=== PATIENT | male | born 1960 | race American Indian/Alaskan Native ===

== ENCOUNTER 2023-07-11 16:17 | Emergency (ER) | payer BC, OTHER ==
[~2023-07-11] VITALS: Ht 182.9 cm; Wt 71.6 kg
[~2023-07-11 16:17] MED LIST: LEVA15HF4 IH; PRED20TA PO
[2023-07-11 16:25] VITALS: BP 121/71; PULSE 86; RESP 16; TEMP 97.9; O2SAT 99
--- NOTE | 2023-07-11 20:03 | NUR ---
PATIENT ASLEEP IN FTL.
== END 2023-07-11 20:43 | disposition home or self-care (01) ==
LOC: ER 16:17
DX: F15.10 Other stimulant abuse, uncomplicated (principal); E11.9 Type 2 diabetes mellitus without complications; F31.9 Bipolar disorder, unspecified; Z79.899 Other long term (current) drug therapy
CPT/HCPCS: 99281

== ENCOUNTER 2023-10-09 16:00 | Inpatient (IN) | payer BC, MEDICAID ==
[~2023-10-09] VITALS: Ht 182.9 cm; Wt 64.5 kg
[2023-10-10 11:08] VITALS: BP 123/67; PULSE 56; RESP 17; TEMP 98.5; O2SAT 95
[2023-10-10] MEDS ORDERED: acetaminophen 325mg tablet PO PRN ×2 (11:35)
[2023-10-10] MEDS ORDERED: mag hydrox/Alum hydrox/simeth 30ml oral suspension PO PRN (11:35)
[2023-10-10] MEDS ORDERED: loperamide 2mg capsule PO PRN (11:35)
[2023-10-10] MEDS ORDERED: NICOTINE POLACRILEX 2 MG LOZENGE BC PRN (11:35)
[2023-10-10] MEDS ORDERED: magnesium hydroxide 30ml (MOM) UD suspension PO PRN (11:35)
--- NOTE | 2023-10-10 11:43 | NUR ---
Admit note: [facility] a 5150 at 1108 for DTS from [facility]. Pt reports plan to kill himself via overdose of fentanyl. He reports no desire to live. No safety plan in place. Pt has history of Bipolar.
[2023-10-10 11:52] VITALS: RESP 17; O2SAT 95
[2023-10-10] MEDS ORDERED: NO HOME MEDS (12:01)
[2023-10-10 19:00] VITALS: RESP 16; O2SAT 95
[2023-10-10 20:00] VITALS: BP 103/76; PULSE 94; RESP 16; TEMP 98.6; O2SAT 95
--- NOTE | 2023-10-10 22:57 | NUR ---
Nursing Progress Note: Du Problem: Pt. admitted to [facility] on a 5150 for DTS from [facility].Pt reports plan to kill himself via overdose of fentanyl. He reports no desire to live. No safety plan in place.Pt has history of Bipolar. Interventions : Introduced self and attempted to established rapport, maintained a safe and supportive environment, provided clear and simple instructions, maintained orientation to reality, monitored behavior and provided redirection as needed, maintained Q 15min safety checks. Response: Pt. received awake and lying in bed. He endorses SI stating the same damn plan Iv had he denies HI, AH, VH and has no DC plan at this time. Pt. presents with poor eye contact, downcasted and withdrawn. Pt. states no one cares about me here Pt. reported bilateral foot pain 07/31; offered PRN Tylenol, but her refused. He was encourage to participate in evening activities and snacks, but he refused and stayed in his room all evening. Plan: Pt. requires interruption of current crisis, medication adjustments, and a safe and supportive environment. Addendum: 10/10/23 at 2301 by Lilliam Barragan LVN Nursing Progress Note: Angus Sandy
[2023-10-11 07:00] VITALS: RESP 16; O2SAT 100
[2023-10-11] MEDS ORDERED: traMADol 50MG tablet PO PRN ×2 (07:40→08:29)
[2023-10-11 08:00] VITALS: BP 104/70; PULSE 68; RESP 16; TEMP 98.3; O2SAT 100
[2023-10-11 09:40] LABS: CHOL/HDL RATIO 2.3 (0.00-4.99); CHOLESTEROL 190 MG/DL (0-200); HDL CHOLESTEROL 84 MG/DL (35-60); LDL CHOLESTEROL 89 MG/DL (50-100); TRIGLYCERIDES 51 MG/DL (20-135)
[2023-10-11 10:11] LABS: HEMOGLOBIN A1C 6.2 % (4.5-6.2)
[2023-10-11] MEDS: buPROPion 75mg tablet PO SCH (12:00)
--- NOTE | 2023-10-11 16:47 | NUR ---
Nursing Progress Note: Problem: Pt. admitted to [facility] on a 5150 for DTS from [facility]. Pt reports plan to kill himself via overdose of fentanyl. He reports no desire to live. No safety plan in place. Pt has history of Bipolar. Interventions: Introduced self and attempted to established rapport, maintained a safe and supportive environment, provided clear and simple instructions, maintained orientation to reality, monitored behavior and provided redirection as needed, maintained Q 15min safety checks. Response: Received pt asleep in bed. Pt woke for breakfast and ate in the community room then returned to sleep. While assessing pt he responded just chart that I have a bowel movement every day and stop asking me! Pt irritated at being interrupted from sleeping all day. When pt woke for lunch this RN attempted to assess pt asking if he was having any suicidal thoughts today, pt scoffed, said no then stated I feel like Im wasting my time here, nobody has even looked at my sores yet. Ordered a wound care consult. Was unable to complete a full physical assessment today due to pt agitation. Will continue to monitor. Plan: Pt. requires interruption of current crisis, medication adjustments, and a safe and supportive environment.
[2023-10-11 19:56] VITALS: RESP 20; O2SAT 99
[2023-10-11 19:57] VITALS: BP 95/66; PULSE 114; RESP 20; TEMP 97.9; O2SAT 99
--- NOTE | 2023-10-12 03:38 | NUR ---
Nursing Progress Note: Du Problem: Pt. admitted to [facility] on a 5150 for DTS from [facility]. Pt reports plan to kill himself via overdose of fentanyl. He reports no desire to live. No safety plan in place. Pt has history of Bipolar. Interventions: Introduced self and attempted to established rapport, maintained a safe and supportive environment, provided clear and simple instructions, maintained orientation to reality, monitored behavior and provided redirection as needed, maintained Q 15min safety checks. Response: This nurse resumed care for patient at 1830. This nurse approached patient while he was in bed. Patient not very friendly. Patient denied all symptoms but still has thoughts of suicide. Patient remained in bed all shift. Patient does c/o pain to ankle. Patient currently in bed with eyes closed. No distress to note. Plan: Pt. requires interruption of current crisis, medication adjustments, and a safe and supportive environment.
[2023-10-12 07:00] VITALS: RESP 12; O2SAT 97
[2023-10-12] MEDS: lamoTRIgine 25mg tablet PO SCH (07:40)
[2023-10-12] MEDS: buPROPion 75mg tablet PO SCH ×2 (07:42→11:49)
[2023-10-12 08:00] VITALS: BP 99/61; PULSE 62; RESP 12; TEMP 98.3; O2SAT 97
[2023-10-12 08:49] LABS: BASOPHILS # (AUTO) 0.1 X10'3 (0-0.2); BASOPHILS % (AUTO) 1.1 % (0-1); EOSINOPHILS # (AUTO) 0.2 X10'3 (0-0.9); EOSINOPHILS % (AUTO) 2.5 % (0-6); HEMATOCRIT 43.6 % (42.0-52.0); HEMOGLOBIN 14.7 g/dl (14.0-17.9); LYMPHOCYTES # (AUTO) 1.3 X10'3 (1.1-4.8); LYMPHOCYTES % (AUTO) 14.9 % (21-51); MEAN CORPUSCULAR HEMOGLOBIN 31.6 PG (27.0-31.0); MEAN CORPUSCULAR HGB CONC 33.6 g/dL (33.0-36.5); MEAN CORPUSCULAR VOLUME 93.8 FL (78-98); MEAN PLATELET VOLUME 7.9 FL (7.4-10.4); MONOCYTES # (AUTO) 0.7 X10'3 (0-0.9); MONOCYTES % (AUTO) 7.7 % (2-12); NEUTROPHILS # (AUTO) 6.4 X10'3 (1.8-7.7); NEUTROPHILS % (AUTO) 73.8 % (42-75); PLATELET COUNT 260 X10'3 (140-440); RED BLOOD COUNT 4.65 X10'6 (4.70-6.10); RED CELL DISTRIBUTION WIDTH 13.2 % (11.5-14.5); WHITE BLOOD COUNT 8.7 X10'3 (4.5-11.0)
[2023-10-12 09:21] LABS: RHEUM FACTOR QUAL REFLEX TITER NEGATIVE (Neg)
[2023-10-12 09:22] LABS: ALANINE AMINOTRANSFERASE 14 U/L (12-78); ALBUMIN 3.1 G/DL (3.4-5.0); ALBUMIN/GLOBULIN RATIO 0.8 (1.1-1.5); ALKALINE PHOSPHATASE 106 IU/L (46-116); ANION GAP 6 (8-16); ASPARTATE AMINO TRANSFERASE 16 U/L (10-37); BILIRUBIN,TOTAL 0.5 MG/DL (0.1-1.0); BLOOD UREA NITROGEN 24 MG/DL (7-18); BUN/CREATININE RATIO 31.2 (10.0-20.0); CALCIUM 9.5 MG/DL (8.5-10.1); CHLORIDE 99 MMOL/L (99-107); CREATININE 0.77 MG/DL (0.60-1.10); GLUCOSE 125 MG/DL (70-104); MAGNESIUM 1.6 MG/DL (1.5-2.4); PHOSPHORUS 2.6 MG/DL (2.3-4.5); POTASSIUM 4.5 MMOL/L (3.5-5.1); SODIUM 132 MMOL/L (135-145); THYROID STIMULATING HORMONE 1.14 ulU/ml (0.34-4.50); TOTAL CARBON DIOXIDE 27.5 MMOL/L (24-32); TOTAL PROTEIN 7.2 G/DL (6.4-8.2); URIC ACID 3.7 MG/DL (3.5-7.2); eCRCL 90 ML/MIN; eGFR > 90 ML/MIN
--- NOTE | 2023-10-12 10:22 | NUR ---
Initial: Pt admit for mood d/o with SI. Currently on a regular diet and eating well, documented with average 98% PO intake of meals meeting estimated nutrient needs. LBM 10/11 per EMR. No nutrition intervention implemented at this time. Will continue to follow and make recommendations as appropriate. Recommendations: 1) Continue regular diet 2) Bowel care PRN 3) Weekly scaled weights Addendum: 10/12/23 at [address] Amended: Links added.
[2023-10-12] MEDS ORDERED: traMADol 50MG tablet PO PRN (11:55)
--- NOTE | 2023-10-12 13:17 | NUR ---
WOUND INFECTION EDUCATION PROVIDED BY WOUND CARE 1. Patient instructed to call their primary doctor, or go the ED immediately if any of the following symptoms occur: * Increased pain in wound * Increase in drainage from the wound * Redness in the skin surrounding the wound * Warmth in the skin surrounding the wound * Bleeding from the wound * Temperature of 101 or greater 2. If any of these occur while in the hospital tell a nurse immediately. Addendum: 10/12/23 at 1320 by Sis Vanessa RN Amended: Links added.
--- NOTE | 2023-10-12 17:40 | NUR ---
Nursing Progress Note: Angus Problem: Pt. admitted to [facility] on a 5150 for DTS from [facility]. Pt reports plan to kill himself via overdose of fentanyl. He reports no desire to live. No safety plan in place. Pt has history of Bipolar. Interventions: Introduced self and attempted to established rapport, maintained a safe and supportive environment, provided clear and simple instructions, maintained orientation to reality, monitored behavior and provided redirection as needed, maintained Q 15min safety checks. Response: Received pt asleep in bed. Pt woke for morning medications and took them cooperatively. Pt ate breakfast in the community room and returned to his room to nap. Performed 1:1 bedside. Pt not cooperative with assessment questions. Na 132 today, aware, no new orders. Pt seen by wound care this morning, given lotions and betadine application ordered. Dr Edouard ordered an MRI d/t pt falling on right knee with X-ray showing meningeal calcifications and suprapatellar bone spur. 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 MRI requested an Orbital X-ray for clearance, done today, no middle ear prosthesis found. Cleared for MRI and taken, awaiting results. Will continue to monitor. Plan: Pt. requires interruption of current crisis, medication adjustments, and a safe and supportive environment.
[2023-10-12 19:24] VITALS: BP 114/61; PULSE 89; RESP 18; TEMP 98.1; O2SAT 99
[2023-10-12 19:52] VITALS: RESP 18; O2SAT 99
[2023-10-12] MEDS: tamsulosin 0.4mg capsule PO SCH (20:07)
[2023-10-12] MEDS ORDERED: lamoTRIgine 25mg tablet PO SCH (21:00)
[2023-10-12] MEDS: olanzapine 10mg tablet PO SCH (21:51)
--- NOTE | 2023-10-13 03:25 | NUR ---
Nursing Progress Note: Angus Problem: Pt. admitted to [facility] on a 5150 for DTS from [facility]. Pt reports plan to kill himself via overdose of fentanyl. He reports no desire to live. No safety plan in place. Pt has history of Bipolar. Interventions: Introduced self and attempted to established rapport, maintained a safe and supportive environment, provided clear and simple instructions, maintained orientation to reality, monitored behavior and provided redirection as needed, maintained Q 15min safety checks. Response: This nurse resumed care for patient at 1830. Patient observed in bed with little interaction outside of room other than meals. During 1:1, patient started off by saying dont ask about my bowels. Patient remained closed and guarded. Patient answered questions with short answers. Patient replied sure to feeling depressed. But denied AH/VH, SI/HI. Patient said wound care was done on day shift. Will continue to monitor. Plan: Pt. requires interruption of current crisis, medication adjustments, and a safe and supportive environment.
[2023-10-13 07:30] VITALS: RESP 16
[2023-10-13] MEDS: buPROPion 75mg tablet PO SCH ×3 (08:08→12:39)
[2023-10-13] MEDS: lamoTRIgine 25mg tablet PO SCH ×2 (08:08→20:45)
--- NOTE | 2023-10-13 17:28 | NUR ---
Nursing Progress Note: Problem: Pt. admitted to [facility] on a 5150 for DTS from [facility]. Pt reports plan to kill himself via overdose of fentanyl. He reports no desire to live. No safety plan in place. Pt has history of Bipolar. Interventions: Introduced self and attempted to established rapport, maintained a safe and supportive environment, provided clear and simple instructions, maintained orientation to reality, monitored behavior and provided redirection as needed, maintained Q 15min safety checks. Response: RN received pt. asleep in bed at start of shift. Pt. refused vital signs assessment. Pt. woken up for breakfast and took medication. Pt. came to breakfast late. Pt. went back to his room and napped. RN attempted 1:1 and physical assessment at pt.s bedside, but pt. refused, pt. is irritated states, Just leave me alone, you people dont stop bothering me!. Pt. refused wound care. Pt. isolated to his room most of the day and mostly observed sleeping. Pt. refused lunch. Plan: Pt. requires interruption of current crisis, medication adjustments, and a safe and supportive environment.
[2023-10-13 19:00] VITALS: RESP 16; O2SAT 98
[2023-10-13 20:00] VITALS: BP 108/64; PULSE 83; RESP 16; TEMP 97.8; O2SAT 98
[2023-10-13] MEDS: olanzapine 10mg tablet PO SCH (20:45)
[2023-10-13] MEDS: tamsulosin 0.4mg capsule PO SCH (20:45)
--- NOTE | 2023-10-14 04:47 | NUR ---
Nursing Progress Note: Problem: Pt. admitted to [facility] on a 5150 for DTS from [facility]. Pt reports plan to kill himself via overdose of fentanyl. He reports no desire to live. No safety plan in place. Pt has history of Bipolar. Interventions: Introduced self and attempted to established rapport, maintained a safe and supportive environment, provided clear and simple instructions, maintained orientation to reality, monitored behavior and provided redirection as needed, maintained Q 15min safety checks. Response: Patient received in bed. He was sleeping but arouseable. He reports S/I but no active plan. His appearance was disheveled. Alert and oriented x 4. Speech is clear. Thought process is depressive. Denies A/H and V/H. He has poor insight. His mood is hopeless He was compliant with vital signs, medication pass, and wound care. He declined showering. Snack provided. Plan: Pt. requires interruption of current crisis, medication adjustments, and a safe and supportive environment.
[2023-10-14 07:00] VITALS: RESP 16; O2SAT 96
[2023-10-14 08:00] VITALS: BP 96/61; PULSE 80; RESP 16; TEMP 97; O2SAT 98
--- NOTE | 2023-10-14 17:25 | NUR ---
Nursing Progress Note: Problem: Pt. admitted to [facility] on a 5150 for DTS from [facility]. Pt reports plan to kill himself via overdose of fentanyl. He reports no desire to live. No safety plan in place. Pt has history of Bipolar. Interventions: Introduced self and attempted to established rapport, maintained a safe and supportive environment, provided clear and simple instructions, maintained orientation to reality, monitored behavior and provided redirection as needed, maintained Q 15min safety checks. Response: Nurse received pt. asleep at change of shift. Pt awoke for breakfast and returned to bed. 1:1 done at bedside. Pt. lying in bed for physical assessment and never opened his eye. Pt. endorsed SI but then stated, weve already gone through this, just say no, no, no to everything, Im fine. Pt stated he slept good. Pt socially withdrawn, guarded and isolated himself the entire shift to his room. Pt attended lunch. Tx to wound on back of neck completed. Plan: Pt. requires interruption of current crisis, medication adjustments, and a safe and supportive environment.
[2023-10-14 19:00] VITALS: RESP 18; O2SAT 99
[2023-10-14 20:00] VITALS: BP 101/50; PULSE 93; RESP 18; TEMP 97.4; O2SAT 99
[2023-10-14] MEDS: tamsulosin 0.4mg capsule PO SCH (20:40)
[2023-10-14] MEDS: lamoTRIgine 25mg tablet PO SCH (20:40)
[2023-10-14] MEDS: olanzapine 10mg tablet PO SCH (20:40)
--- NOTE | 2023-10-14 23:32 | NUR ---
Nursing Progress Note: Problem: Pt. admitted to [facility] on a 5150 for DTS from [facility]. Pt reports plan to kill himself via overdose of fentanyl. He reports no desire to live. No safety plan in place. Pt has history of Bipolar. Interventions: Introduced self and attempted to established rapport, maintained a safe and supportive environment, provided clear and simple instructions, maintained orientation to reality, monitored behavior and provided redirection as needed, maintained Q 15min safety checks. Response: Pt. resting in bed at change of shift, pt. had just returned to bed from eating dinner. Pt. was in a much brighter mood this evening compared to the morning shift. Pt. receptive with this nurse, smiling and answering questions appropriately. Pt. denied all MH symptoms but spoke about his 35 yearlong addiction with drugs and hopes he can quit. Pt. states he talked with his son naldo who hasnt spoken to him in over a year due to his addiction. Pt. appeared hopeful. TX. completed to wound on back of his neck, bandage was placed due to pt. scratching the wound causing it to bleed. Pt continued to isolate self to room other than dinner, snack brought to pt. room due to pt. sleeping through it. Plan: Pt. requires interruption of current crisis, medication adjustments, and a safe and supportive environment.
--- NOTE | 2023-10-15 00:10 | NUR ---
Assumed pt care report from AMADO Chapa.
[2023-10-15 07:00] VITALS: RESP 16; O2SAT 100
[2023-10-15 08:00] VITALS: BP 116/69; PULSE 87; RESP 14; TEMP 98; O2SAT 100
[2023-10-15] MEDS ORDERED: LAMO25TB3 PO (13:44)
[2023-10-15] MEDS ORDERED: OLAN5TAB29 PO (13:44)
[2023-10-15] MEDS ORDERED: tamsulosin capsule PO (13:44)
[2023-10-15] MEDS ORDERED: HYDR-3973 PO (13:44)
--- NOTE | 2023-10-15 14:31 | NUR ---
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 Patient is depressed but is voluntary and wants to leave with his son. Patient states his son is here to pick him up and "He is pissed!" (the discharge took so long.) Patient is going to live with his son. Patient has an appointment on 10/21 and is aware. Pictures of patient's wound were completed. Patient has all his belongings. Ambulatory, steady gait. No distress observed.
== END 2023-10-15 14:31 | disposition home or self-care (01) | DRG 885 ==
LOC: ADULT MH 16:00
PROVIDERS: ADMIT Psychiatry & Neurology Psychiatry; ATTEND Psychiatry & Neurology Psychiatry
DX: F33.9 Major depressive disorder, recurrent, unspecified (principal); R45.851 Suicidal ideations; Z59.00 Homelessness unspecified; E11.9 Type 2 diabetes mellitus without complications; F15.10 Other stimulant abuse, uncomplicated; F17.210 Nicotine dependence, cigarettes, uncomplicated; J44.9 Chronic obstructive pulmonary disease, unspecified; M79.674 Pain in right toe(s); M25.561 Pain in right knee; M25.571 Pain in right ankle and joints of right foot; Z85.51 Personal history of malignant neoplasm of bladder; Z82.5 Family history of asthma and other chronic lower respiratory diseases; Z84.89 Family history of other specified conditions; Z71.6 Tobacco abuse counseling
CPT/HCPCS: 36415; 70200; 73721; 80053; 80061; 83036; 83735; 84100; 84443; 84550; 85025; 86430; 87081; A6258